=== PATIENT | female | born 1950 | race Caucasian/White ===

== ENCOUNTER 2018-03-03 13:14 | Emergency (ER) | payer OTHER ==
[~2018-03-03] VITALS: Ht 165.1 cm; Wt 71.7 kg
[~2018-03-03 13:14] MED LIST: DICLOFENAC SODI50 MG PO; MEDROL8 MG PO; OSEL75CA PO; TUSSI PRES-B L120 M1 PO; XOPENEX0.63 MG/3 IH; ZYNCOF 20-400120 ML PO
[2018-03-03] MEDS ORDERED: OMEPRAZOLE20 M1 PO (13:36)
== END 2018-03-03 22:20 | disposition home or self-care (01) ==
LOC: ER 13:14 → CPU-OBS 13:33 → ER 22:20
DX: R07.89 Other chest pain (principal); R00.2 Palpitations
CPT/HCPCS: G0378; G0379; 93005

== ENCOUNTER 2018-04-19 18:31 | Emergency (ER) | payer OTHER ==
[~2018-04-19] VITALS: Ht 165.1 cm; Wt 72.1 kg
[~2018-04-19 18:31] MED LIST changes: +OMEPRAZOLE20 M1 PO
== END 2018-04-19 20:26 | disposition home or self-care (01) ==
LOC: ER 18:31
DX: S60.222A Contusion of left hand, initial encounter (principal); W18.39XA Other fall on same level, initial encounter; Y93.89 Activity, other specified; Y92.098 Other place in other non-institutional residence as the place of occurrence of the external cause; Y99.8 Other external cause status

== ENCOUNTER 2019-01-16 11:50 | Emergency (ER) | payer OTHER ==
[~2019-01-16] VITALS: Ht 165.1 cm; Wt 74.8 kg
== END 2019-01-16 14:47 | disposition home or self-care (01) ==
LOC: ER 11:50
DX: S80.01XA Contusion of right knee, initial encounter (principal); W18.39XA Other fall on same level, initial encounter; Y93.89 Activity, other specified; Y92.098 Other place in other non-institutional residence as the place of occurrence of the external cause; Y99.8 Other external cause status

== ENCOUNTER 2019-03-15 07:45 | Outpatient (CLI) | payer OTHER | END 2019-03-15 11:18 | disposition home or self-care (01) | LOC: SONOGRAMA 07:45 | DX: E04.2 Nontoxic multinodular goiter (principal) ==

== ENCOUNTER 2020-05-31 15:51 | Emergency (ER) | payer OTHER ==
[~2020-05-31] VITALS: Ht 165.1 cm; Wt 73.5 kg
[2020-05-31] MEDS ORDERED: PREVACID30 MG PO (23:57)
[2020-05-31] MEDS ORDERED: INTESTINEX680 M1 PO (23:57)
[2020-05-31] MEDS ORDERED: PEPCID AC20 MG PO (23:57)
[2020-05-31] MEDS ORDERED: LEVSIN/SL0.125 MG SL (23:57)
[2020-06-01] MEDS ORDERED: PEPCID AC20 MG (00:21)
== END 2020-06-01 01:50 | disposition home or self-care (01) ==
LOC: ER 15:51
DX: K29.60 Other gastritis without bleeding (principal); R10.817 Generalized abdominal tenderness; T37.5X5A Adverse effect of antiviral drugs, initial encounter; Y92.89 Other specified places as the place of occurrence of the external cause; Z03.818 Encounter for observation for suspected exposure to other biological agents ruled out

== ENCOUNTER 2020-12-26 15:58 | Emergency (ER) | payer OTHER ==
[~2020-12-26] VITALS: Ht 170.2 cm; Wt 72.6 kg
[~2020-12-26 15:58] MED LIST changes: +INTESTINEX680 M1 PO; +LEVSIN/SL0.125 MG SL; +PEPCID AC20 MG; +PEPCID AC20 MG PO; +PREVACID30 MG PO
[2020-12-26] MEDS ORDERED: ATORVASTATIN CA20 MG (16:32)
[2020-12-26] MEDS ORDERED: LOSARTAN POTASS25 MG (16:32)
[2020-12-26] MEDS ORDERED: TOPROL XL25 M1 (16:32)
[2020-12-26] MEDS ORDERED: PERCOCET 5-3251 EACH PO (20:27)
== END 2020-12-26 20:54 | disposition home or self-care (01) ==
LOC: ER 15:58
DX: S40.021A Contusion of right upper arm, initial encounter (principal); W18.39XA Other fall on same level, initial encounter; Y93.89 Activity, other specified; Y92.89 Other specified places as the place of occurrence of the external cause; Y99.8 Other external cause status

== ENCOUNTER 2020-12-31 13:05 | Outpatient (CLI) | payer OTHER ==
[~2020-12-31 13:05] MED LIST changes: +ATORVASTATIN CA20 MG; +LOSARTAN POTASS25 MG; +PERCOCET 5-3251 EACH PO; +TOPROL XL25 M1
== END 2020-12-31 13:15 | disposition home or self-care (01) ==
LOC: TOM 13:05
PROVIDERS: ATTEND Orthopaedic Surgery
DX: S52.531A Colles' fracture of right radius, initial encounter for closed fracture (principal)

== ENCOUNTER → 2021-01-03 07:18 | Outpatient (CLI) | payer OTHER | END | disposition home or self-care (01) | LOC: LAB 07:18 | PROVIDERS: ATTEND Orthopaedic Surgery Hand Surgery | DX: D68.8 Other specified coagulation defects (principal); I10 Essential (primary) hypertension ==

== ENCOUNTER 2021-02-04 14:22 | Outpatient (CLI) | payer OTHER | END 2021-02-04 14:29 | disposition home or self-care (01) | LOC: RAD 14:22 | PROVIDERS: ATTEND Orthopaedic Surgery Hand Surgery | DX: S52.521A Torus fracture of lower end of right radius, initial encounter for closed fracture (principal) ==

== ENCOUNTER 2021-02-24 10:14 | Outpatient (CLI) | payer OTHER | END 2021-02-24 10:16 | disposition home or self-care (01) | LOC: LAB 10:14 | PROVIDERS: ATTEND Specialist | DX: I10 Essential (primary) hypertension (principal); I50.32 Chronic diastolic (congestive) heart failure; I11.9 Hypertensive heart disease without heart failure ==

== ENCOUNTER 2022-04-07 15:19 | Emergency (ER) | payer OTHER ==
[~2022-04-07] VITALS: Ht 165.1 cm; Wt 65.8 kg
[2022-04-07] MEDS ORDERED: DICLOFENAC SODI75 MG PO (19:14)
== END 2022-04-07 19:16 | disposition home or self-care (01) ==
LOC: ER 15:19
DX: M54.50 Low back pain, unspecified (principal); T14.90XA Injury, unspecified, initial encounter; W18.39XA Other fall on same level, initial encounter; Y93.9 Activity, unspecified; Y92.9 Unspecified place or not applicable; Y99.9 Unspecified external cause status